=== PATIENT | male | born 1980 | race Two or more races ===

== ENCOUNTER 2019-06-04 12:40 | Emergency (ER) | payer SELFPAY ==
[~2019-06-04] VITALS: Ht 167.6 cm; Wt 77.1 kg
[2019-06-04 14:37] VITALS: BP 140/76
[2019-06-04] MEDS ORDERED: ACETAMINOPHEN/CODEINE#3 (300/30mg) TAB PO ONE (18:00)
== END 2019-06-04 18:46 | disposition home or self-care (01) ==
LOC: ER 12:44
DX: M62.830 Muscle spasm of back (principal); M54.5 Low back pain; R42 Dizziness and giddiness; R55 Syncope and collapse; R07.89 Other chest pain; R51 Headache; V89.2XXA Person injured in unspecified motor-vehicle accident, traffic, initial encounter; Y93.I9 Activity, other involving external motion; Y92.410 Unspecified street and highway as the place of occurrence of the external cause; Y99.8 Other external cause status
CPT/HCPCS: 70450; 71046; 72100; 72125; 72131